=== PATIENT | female | born 1930 | race Caucasian/White ===

== ENCOUNTER 2017-01-23 05:58 | Inpatient (IN) | payer MEDICARE, OTHER ==
[2017-01-23] VITALS (7 sets, daily range): BP systolic 126–149; BP diastolic 57–69; PULSE 70–77; RESP 18; Ht 157.5 cm; Wt 84.5 kg
[~2017-01-23] VITALS: Ht 157.5 cm; Wt 84.5 kg
[~2017-01-23 05:58] MED LIST: ASPI-727; CAND16TA PO; CRES10 PO; DILT120C79 PO; FURO20TA3 PO; ICOS1CAP PO; LANT3I SC; LATA2.5D9; LOSA25TA2 PO; METF1000 PO; METO-335 PO; NOVO3I SC; RIVA15TA PO
[2017-01-23] MEDS ORDERED: ASPIRIN 325 MG TAB PO STA (06:29)
--- NOTE | 2017-01-23 06:41 | ERA ---
ER Documentation Chief Complaint Date/Time DATE: 01/23/17 TIME: 06:35 Chief Complaint shortness of breath x 3 days with high blood pressure HPI This is a very pleasant 86-year-old female presents with her family member for shortness of breath. Symptoms present for approximately 3-4 days. He notes that her blood pressure has been elevated over this timeframe. The patient has been describing generalized weakness, shortness of breath and dyspnea on exertion. He states that was worse tonight when the patient had dyspnea when laying flat. She is also describing a pressure-like discomfort in her epigastrium and chest that is been present for 3 days it is 2 out of 10 currently. She denies any migratory pain. No abdominal bloating or swelling, no nausea vomiting diarrhea or constipation. The patient has a history of atrial fibrillation on Xarelto, diastolic heart failure with preserved EF. ROS All systems reviewed and are negative except as per history of present illness. Medications Home Meds Active Scripts Losartan Potassium* (Cozaar*) 25 Mg Tablet, 25 MG PO BID, #90 TAB 1 Refill Prov:ANDREW GAGNON 04/07/16 Metoprolol Succinate* (Toprol XL*) 25 Mg Tab.sr.24h, 25 MG PO DAILY, #60 TAB 1 Refill Prov:ANDREW GAGNON 04/07/16 Furosemide* (Furosemide*) 20 Mg Tablet, 20 MG PO DAILY, #60 TAB 1 Refill Prov:ANDREW GAGNON 04/07/16 Reported Medications Icosapent Ethyl (VASCEPA) 1 Gm Capsule, 2 GM PO BID, CAP 04/04/16 Candesartan Cilexetil (Atacand) 16 Mg Tablet, 16 MG PO DAILY, TAB PT STOPPED TAKING FOR [address] TO DO TESTS 04/04/16 Metformin Hcl* (Metformin Hcl*) 1,000 Mg Tablet, 1000 MG PO WITH BREAKFAST DINNE , #30 TAB 04/04/16 Insulin Glargine* (Lantus*) 100 Unit/Ml Soln, 0 SC QHS, #1 VIAL SLIDING SCALE 04/04/16 Insulin Aspart* (Novolog Insulin Pen*) 100 Unit/Ml Soln, 0 SC .SLIDING SCALE AC , EA AC MEALS 04/04/16 Diltiazem Hcl* (Diltiazem XT) 120 Mg Capsule.sa, 120 MG PO DAILY, #30 CAP PT STOPPED TAKE ON 03-28-[address] TO HAVE TEST DONE ON THE HEART 04/04/16 Rosuvastatin Calcium* (Crestor*) 10 Mg Tablet, 10 MG PO DAILY 06/09/13 Rivaroxaban* (Xarelto*) 15 Mg Tablet, 15 MG PO DAILY 06/09/13 Latanoprost (Xalatan) 2.5 Ml Drops 03/24/10 Aspirin (Adult Aspirin) 81 Mg Tab.chew 03/24/10 Allergies Allergies: Coded Allergies: morphine (Verified Allergy, Unknown, 04/04/16) PMhx/Soc History of Surgery: Yes Anesthesia Reaction: No Hx Neurological Disorder: No Hx Respiratory Disorders: No Hx Cardiac Disorders: Yes Hx Psychiatric Problems: No Hx Miscellaneous Medical Probl: No Hx Alcohol Use: No Hx Substance Use: No Hx Tobacco Use: No FmHx Family History: coronary disease, diabetes Physical Exam Vitals Vital Signs Date Time Temp Pulse Resp B/P Pulse Ox O2 Delivery O2 Flow Rate FiO2 01/23/17 06:01 97.3 86 20 199/88 97 Physical Exam General: Well developed, well nourished, no acute distress Head: Normocephalic, atraumatic. Eyes: Pupils equally reactive, EOM intact ENT: Moist mucous membranes Neck: Supple, no lymphadenopathy Respiratory: Very scant rales at the bases bilaterally but no respiratory distress Cardiovascular: Irregularly irregular no tachycardia, no murmurs, rubs, or gallops Abdominal: Soft, non-tender, non-distended, no peritoneal signs : Deferred MSK: Scant bilateral edema, no unilateral swelling, 5/5 strength Neurologic: Alert and oriented, moving all extremities, normal speech, no focal weakness, no cerebellar signs Skin: No rash Psych: Normal mood Result Diagram: 01/23/17 0650 01/23/1750 Results 24 hrs Laboratory Tests Test 01/23/17 06:50 White Blood Count 6.310^3/ul Red Blood Count 3.8510^6/ul Hemoglobin 12.2g/dl Hematocrit 36.0% Mean Corpuscular Volume 93.5fl Mean Corpuscular Hemoglobin 31.7pg Mean Corpuscular Hemoglobin Concent 33.9g/dl Red Cell Distribution Width 12.9% Platelet Count 98235^3/UL Mean Platelet Volume 10.3fl Neutrophils % 68.0% Lymphocytes % 18.1% Monocytes % 9.7% Eosinophils % 3.2% Basophils % 0.8% Nucleated Red Blood Cells % 0.0/100WBC Neutrophils # 4.310^3/ul Lymphocytes # 1.110^3/ul Monocytes # 0.610^3/ul Eosinophils # 0.210^3/ul Basophils # 0.110^3/ul Nucleated Red Blood Cells # 0.010^3/ul Sodium Level 138mmol/L Potassium Level 4.1mmol/L Chloride Level 104mmol/L Carbon Dioxide Level 24mmol/L Anion Gap 14 Blood Urea Nitrogen 25mg/dl Creatinine 0.98mg/dl Glucose Level 165mg/dl Calcium Level 9.0mg/dl Total Bilirubin 0.2mg/dl Direct Bilirubin 0.00mg/dl Indirect Bilirubin 0.2mg/dl Aspartate Amino Transf (AST/SGOT) 33IU/L Alanine Aminotransferase (ALT/SGPT) 36IU/L Alkaline Phosphatase 102IU/L Troponin I 0.015ng/ml B-Type Natriuretic Peptide 2310PG/ML Total Protein 7.1g/dl Albumin 3.8g/dl Globulin 3.30g/dl Albumin/Globulin Ratio 1.15 Current Medications Medications (Trade) Dose Ordered Sig/Jacque Route PRN Reason Start Time Stop Time Status Last Admin Dose Admin Aspirin (Aspirin) 325 mg ONCE STAT PO 01/23/17 06:29 01/23/17 06:33 DC 01/23/17 07:04 Furosemide (Lasix) 40 mg ONCE ONCE IV 01/23/17 08:00 01/23/17 08:01 DC Ondansetron HCl (Zofran Inj) 4 mg ER BRIDGE PRN IV NAUSEA AND/OR VOMITING 01/23/17 08:00 01/24/17 07:59 Acetaminophen (Tylenol Tab) 650 mg ER BRIDGE PRN PO MILD PAIN/FEVER 01/23/17 08:00 01/24/17 07:59 Procedures/MDM EKG, MONITORS, & DIAGNOSTIC IMAGING: EKG: I reviewed and interpreted a 12-lead EKG. Rhythm: Atrial fibrillation, rate controlled Ectopy: None Intervals: No abnormalities ST segments: No elevations or depressions T waves: No contiguous inversions Repeat EKG EKG: I reviewed and interpreted a 12-lead EKG. Rhythm: Atrial fibrillation, rate controlled Ectopy: None Intervals: No abnormalities ST segments: No elevations or depressions T waves: No contiguous inversions Chest x-ray: I reviewed and interpreted a 1 view of the chest Mediastinum: No enlargement Cardiac silhouette: Mild cardiomegaly Airspace: Interstitial process consistent with pulmonary edema Bones: No evidence of fracture LAB INTERPRETATION: No leukocytosis, negative troponin, BNP elevation at 2000 MEDICAL DECISION MAKING: The patient presents with epigastric and chest discomfort and dyspnea on exertion or shortness of breath and dyspnea when laying flat. She has a history of atrial fibrillation, she is currently anticoagulated appropriately. She states compliance with her medication regimen. Her symptomatology and presentation is concerning for mild decompensated congestive heart failure likely secondary to diastolic dysfunction with preserved ejection fraction. The patient does not exhibit any signs or symptoms concerning for pulmonary embolism or dissection. Her abdominal exam is benign without signs or symptoms concerning for acute intra-abdominal process such as bowel obstruction, acute appendicitis or cholecystitis. Given the patient's complex medical history including her age with epigastric and chest discomfort I would strongly recommend hospitalization. Aspirin provided. The patient will likely require gentle diuresis, no respiratory distress that warrants BiPAP or nitroglycerin drip. ER COURSE: The patient continues to be resting comfortably. She was given aspirin, Lasix. The patient does not require nitroglycerin, nitroglycerin drip or BiPAP. She has no chest pain currently. She will be admitted for further management of likely decompensated heart failure. I kept the patient and/or family informed of laboratory and diagnostic imaging results throughout the emergency room course. DISPOSITION PLAN: Telemetry admission for management of likely CHF, chest pain rule out. CONSULTATION: Accepting care team and consultations: I discussed the current laboratory data, diagnostic imaging and emergency care provided. Admitting team: Dr. Roberts Admitting team indication: Insurance directed Departure Diagnosis: Primary Impression: Shortness of breath Additional Impressions: Acute exacerbation of CHF (congestive heart failure) Qualified Code: I50.33 - Acute on chronic diastolic congestive heart failure Chest pain Qualified Code: R07.9 - Chest pain, unspecified type Condition: Stable RONY CAMPBELL MD Jan 23, 2017 06:41
[2017-01-23 07:07] LABS: BASOPHIL # 0.1 10^3/ul (0.0-0.1); BASOPHILS % 0.8 % (0.0-2.0); EOSINOPHILS # 0.2 10^3/ul (0.0-0.5); EOSINOPHILS % 3.2 % (0.0-7.0); HEMOGLOBIN 12.2 g/dl (12.0-16.0); LYMPHOCYTES # 1.1 10^3/ul (0.8-2.9); LYMPHOCYTES % 18.1 % (15.0-51.0); MEAN CORPUSCULAR HEMOGLOBIN 31.7 pg (29.0-33.0); MEAN CORPUSCULAR HGB CONC 33.9 g/dl (32.0-37.0); MEAN CORPUSCULAR VOLUME 93.5 fl (82.0-101.0); MEAN PLATELET VOLUME 10.3 fl (7.4-10.4); MONOCYTE # 0.6 10^3/ul (0.3-0.9); MONOCYTES % 9.7 % (0.0-11.0); NEUTROPHIL # 4.3 10^3/ul (1.6-7.5); PLATELET COUNT 229 10^3/UL (140-415); RED BLOOD COUNT 3.85 10^6/ul (4.20-5.40); RED CELL DISTRIBUTION WIDTH 12.9 % (11.5-14.5); WHITE BLOOD COUNT 6.3 10^3/ul (4.8-10.8)
[2017-01-23 07:23] LABS: ALBUMIN 3.8 g/dl (3.3-4.9); ALBUMIN/GLOBULIN RATIO 1.15; BILIRUBIN,INDIRECT 0.2 mg/dl (0-1.1); BILIRUBIN,TOTAL 0.2 mg/dl (0.2-1.3); CREATININE 0.98 mg/dl (0.44-1.00); POTASSIUM 4.1 mmol/L (3.5-5.1); TOTAL PROTEIN 7.1 g/dl (6.1-8.1)
[2017-01-23 07:34] LABS: TROPONIN-I 0.015 ng/ml (0.00-0.12)
[2017-01-23] MEDS ORDERED: ONDANSETRON 4 MG INJ IV PRN ×2 (08:00→09:00)
[2017-01-23] MEDS ORDERED: ACETAMINOPHEN 325 MG TAB PO PRN ×2 (08:00→09:00)
[2017-01-23] MEDS ORDERED: FUROSEMIDE 40 MG INJ IV ONE ×2 (08:00→19:00)
--- NOTE | 2017-01-23 08:02 | RADRPT ---
PROCEDURE: XR Chest. CLINICAL INDICATION: Chest pain. TECHNIQUE: Single frontal view of the chest was obtained. COMPARISON: Chest x-ray 04/06/2018 06:37 a.m. FINDINGS: The soft tissues are normal. There are degenerative osteophytes in the thoracic spine. The left ve ntricle is enlarged. The cardiomediastinal silhouette and hilar structures are normal. The pulmonary vasculature is equilibrated. There are vascular calcifications in the mildly ectatic left-sided ao rta. Mild interstitial pulmonary edema is suspected in the bases of the lungs. The costophrenic ang les are normal. IMPRESSION: 1. Cardiomegaly with equilibration pulmonary vasculature with faint interstitial pulmonary edema. 2. Atherosclerosis with mild ectasia of the thoracic aorta. 3. Spondylosis of the thoracic spine. RPTAT:AAJJ Physician Tulio Date Time Electronically viewed and signed by Physician Tulio on 01/23/2017 08:02 KALE/
[2017-01-23] MEDS ORDERED: MAGNESIUM HYDROXIDE 30ML CUP PO PRN (09:00)
[2017-01-23] MEDS ORDERED: NACL 0.9% 3 ML SYG IV SCH (09:00)
[2017-01-23] MEDS ORDERED: LATANOPROST 0.005% 2.5 ML OPH BOTH EYES SCH (09:00)
[2017-01-23] MEDS ORDERED: NITROGLYCERIN (SL) 0.4 MG TAB SL PRN (09:00)
[2017-01-23] MEDS ORDERED: DOCUSATE SODIUM 100 MG CAP PO PRN (09:00)
--- NOTE | 2017-01-23 09:11 | HP ---
Date/Time of Note Date/Time of Note DATE: 01/23/17 TIME: 09:00 Assessment/Plan VTE Prophylaxis VTE Prophylaxis Intervention: anti-embolic stocking, other Lines/Catheters IV Catheter Type (from Nrs): Saline Lock Assessment/Plan Assessment/Plan 1. Acute on chronic diastolic heart failure - CXR shows cardiomegaly with pulmonary edema - BNP 2310 - Cardiology consult placed and followed by Dr. Nguyen during last admission - ECHO ordered to assess function - Lasix given in ED and started on Lasix 60mg IV BID - Discussed with son importance of daily weights in order to monitor if patient is retaining fluid 2. Hypertensive urgency - BP at time of presentation was 199/88 - may have exacerbated patients CHF. Noted in past HTN may be secondary to renal artery stenosis and currently treated with medical management - Will resume home medications and adjust as needed to maintain SBP <160 3. Diabetes Mellitus - Per son, sugars well controlled in the 100s and taking Metformin daily and ISS as well as Lantus based on accucheck at home - Will hold PO medication and continue on Lantus with ISS - A1c ordered. last was 7.9 per son 4. Afib on Xarelto - Currently rate controlled - Will continue same regime 5. Renal artery stenosis - monitor BP and adjust medications as needed - Once patient stable, will address desire for surgical intervention - During last hospitalization, Dr. Nguyen reenforced importance of low na diet and avoiding NSAIDs which was readdressed with son 6. Diet - Cardiac 7. Gi ppx - PPI 8. DVT - SCD, on xarelto 9. Code status - Full code 10. Disposition - Will admit to telemetry for further workup >40 minutes was spent at time of admission with patient and family at bedside. All imaging and labs were personally reviewed and questions answered HPI/ROS Admit Date/Time Admit Date/Time 01/23/17 Hx of Present Illness 86 yo F with PMH CAD, afib on Xarelto, DM, HFpEF, and renal artery stenosis presented to ED c/o worsening shortness of breath over the past 3 days. Patients son was at bedside and history obtained from son as well as patient. Patient was experiencing shortness of breath on exertion that progressed to orthopnea. She had associated generalized weakness, diminished appetite and has also been experiencing epigastric discomfort over the same time frame. Patient denies any sick contact, change in diet, wheezing, cough, dizziness, headache, fevers, chills, or abdominal issues. Patient has an appointment with PCP on Wednesday but since condition was worsening son decided to bring her to ED. She was followed by Dr. Nguyen during last hospitalization and has been a patient with the practice since 2003. Per son, patients DM is well controlled with sugars ranging in the 100s. She only takes Metformin daily and lantus/ISS based on sugars. Last reported A1c was 7.9. ROS Constitutional: No chills, No diaphoresis, No disoriented, No fatigue, No febrile, No nausea Eyes: no complaints ENT: No congestion, No discharge, No sore throat Respiratory: shortness of breath, No cough, No pain, No sputum, No wheezing Cardiovascular: lightheadedness, orthopenea, No edema, No palpitations Gastrointestinal: pain (epigastric area), No constipation, No diarrhea, No nausea, No vomiting Genitourinary: no complaints Musculoskeletal: no complaints Skin: No erythema, No pruritis, No rash Neurologic: no complaints Endocrine: no complaints Lymphatic: no complaints Psychological: nl mood/affect Immunologic: no complaints PMH/Family/Social Past Medical History Medical History: coronary artery disease, diabetes, GERD, hypertension, renal disease, other (atrial fibrillation) Past Surgical History Past Surgical Hx: angioplasty Family History Significant Family History: heart disease, diabetes Social History Alcohol Use: none Smoking Status: Never smoker Drug Use: none Exam/Review of Systems Vital Signs Vitals Vital Signs Date Time Temp Pulse Resp B/P Pulse Ox O2 Delivery O2 Flow Rate FiO2 01/23/17 06:01 97.3 86 20 199/88 97 Exam Constitutional: alert, oriented, well developed, No distress Psych: nl mood/affect Head: atraumatic, normocephalic Eyes: EOMI, PERRL, nl sclera ENMT: mucosa pink and moist, nl external ears & nose Neck: non-tender, supple, No jvd Respiratory: clear to auscultation, crackles/rales (right lower base), diminished breath sounds, No wheezing Cardiovascular: irregular rhythm, No edema, No murmurs/extra sounds Gastrointestinal: bowel sounds, non-tender, soft, No distended, No firm, No hepatomegaly, No rebound or guarding Musculoskeletal: nl extremities to inspection, No joint tenderness, No muscle weakness Extremities: normal pulses, No clubbing, No cyanosis, No edema Neurological: 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 CLINICAL INDICATION: Chest pain. TECHNIQUE: Single frontal view of the chest was obtained. COMPARISON: Chest x-ray 04/06/2018 06:37 a.m. FINDINGS: The soft tissues are normal. There are degenerative osteophytes in the thoracic spine. The left ventricle is enlarged. The cardiomediastinal silhouette and hilar structures are normal. The pulmonary vasculature is equilibrated. There are vascular calcifications in the mildly ectatic left- sided aorta. Mild interstitial pulmonary edema is suspected in the bases of the lungs. The costophrenic angles are normal. IMPRESSION: 1. Cardiomegaly with equilibration pulmonary vasculature with faint interstitial pulmonary edema. 2. Atherosclerosis with mild ectasia of the thoracic aorta. 3. Spondylosis of the thoracic spine. COREY VILLEDA MD Jan 23, 2017 09:11
[2017-01-23] MEDS ORDERED: GLUCOSE GEL 15 GRAM TUBE PO PRN ×2 (10:30)
[2017-01-23] MEDS ORDERED: GLUCOSE GEL 15 GRAM TUBE BUCCAL PRN (10:30)
[2017-01-23] MEDS ORDERED: GLUCAGON 1 MG INJ IM PRN (10:30)
[2017-01-23] MEDS ORDERED: DEXTROSE 50% 50 ML SYRINGE IV PRN ×2 (10:30)
[2017-01-23 10:55] LABS: CHOL/HDL RATIO 2.6 RATIO
[2017-01-23] MEDS: METOPROLOL (XL) 25 MG TAB PO SCH (10:58)
[2017-01-23] MEDS: ASPIRIN 81 MG TAB PO SCH (10:59)
[2017-01-23] MEDS: RIVAROXABAN 15 MG TABLET PO SCH (12:02)
[2017-01-23] MEDS: INSULIN ASPART [NOVOLOG] 3 ML PEN SC SCH ×3 (12:02→21:18)
[2017-01-23] MEDS: DILTIAZEM (CD) 120 MG CAP PO SCH (12:04)
[2017-01-23] MEDS: FISH OIL 1,000 MG CAP PO SCH ×2 (12:05→21:16)
[2017-01-23] MEDS: LOSARTAN 25 MG TAB PO SCH ×2 (12:05→21:16)
[2017-01-23 13:24] LABS: CREATINE KINASE 90 IU/L (23-200)
[2017-01-23 13:38] LABS: CK-MB 2.62 ng/ml (0.0-2.4); TROPONIN-I < 0.012 ng/ml (0.00-0.12)
[2017-01-23] MEDS: FUROSEMIDE 100 MG INJ IV SCH (18:00)
[2017-01-23 19:38] LABS: CREATINE KINASE 83 IU/L (23-200)
[2017-01-23 19:54] LABS: TROPONIN-I < 0.012 ng/ml (0.00-0.12)
[2017-01-23] MEDS: ATORVASTATIN 40 MG TAB PO SCH (21:16)
[2017-01-23] MEDS: INSULIN GLARGINE [LANtus] 3 ML PEN SC SCH (21:17)
[2017-01-24] VITALS (12 sets, daily range): BP systolic 113–136; BP diastolic 60–68; PULSE 60–70; RESP 18–20
--- NOTE | 2017-01-24 03:17 | CONS ---
DATE OF ADMISSION: 01/23/2017 DATE OF CONSULTATION: 01/23/2017 CARDIOLOGY CONSULTATION REFERRING PHYSICIAN: Dr. Roberts REASON FOR CONSULTATION: Shortness of breath, rule out CHF. CHIEF COMPLAINT: Shortness of breath. HISTORY OF PRESENT ILLNESS: Thank you for this referral. History obtained from the patient, from [facility] with her son, extensive review of the old chart. This is a pleasant 86-year-old female wi th history of coronary artery disease, status post PCI, history of carotid stenosis status post left endarterectomy, hypertension, atrial fibrillation on Xarelto, who came to emergency room with the a mitali complaint. The patient said that apparently over the past week, her diuretics have been decrea sed to once a day only. She has noted increasing shortness of breath. She describes it as shortnes s of breath and cough after she eats only. She says if she does not eat, she is just weak, but she does not complain of any shortness of breath if she does not eat. She has received diuretics today and has been urinating, and breathing has significantly improved now already. Denies any chest pain or pressure to me. PAST MEDICAL HISTORY: History of coronary artery disease, status post PCI, diabetes, carotid stenos is status post left carotid endarterectomy, history of atrial fibrillation, hypertension, renal narciso ry stenosis reportedly, diabetes. PAST SURGICAL HISTORY: Status post left carotid endarterectomy and angioplasty. FAMILY HISTORY: No reported early coronary artery disease. SOCIAL HISTORY: Does not smoke or drink. ALLERGIES: NO ALLERGIES TO MORPHINE. MEDICATIONS: As per medical reconciliation sheet, which include: 1. Xarelto. 2. Atacand. 3. Cardizem. 4. . 5. Losartan. 6. Toprol. 7. Crestor. 8. Aspirin. 9. Lasix 20. 10. Metformin. 11. Insulin. REVIEW OF SYSTEMS: As above mentioned. PHYSICAL EXAMINATION: VITAL SIGNS: Temperature 98.3, heart rate of 71, blood pressure 126/57, respiratory rate of 18, sat urating 95%. Blood pressure on admission was 119/88. HEENT: Normocephalic, atraumatic. Obese female. Pupils are equal. CARDIOVASCULAR: Irregularly irregular with systolic murmur. PULMONARY: Anteriorly with no wheezes, no rhonchi. GASTROINTESTINAL: Soft, nontender, obese. EXTREMITIES: With no significant lower extremity edema. NEUROLOGIC: Awake and alert, responds appropriately. PSYCHIATRIC: Appears to be calm and pleasant. DERMATOLOGIC: No active bleeding sign. LABORATORY: Troponin is 0.015. Sodium 138, potassium 4.1, BUN of 25, creatinine , glucose 165 . Most recent hemoglobin from today is 7.8. WBC is 6.3, hemoglobin 12.2, platelets of 229. BNP wa s elevated at 2310. Chest x-ray was personally reviewed. It shows minimal pulmonary vascular conge stion on my personal review. EKG: Atrial fibrillation. ASSESSMENT AND PLAN: 1. Congestive heart failure, probably [id number] secondary to diastolic heart failure. 2. Dyspnea, probably secondary to above, as well as possibly related to dysphagia and aspiration. 3. Hypertension, hypertensive heart disease. 4. Dyslipidemia. 5. Coronary artery disease. 6. Peripheral vascular disease. 7. Diabetes. 8. Atrial fibrillation. RECOMMENDATIONS: The patient has been started on IV Lasix. I will continue the dose for now, but p robably tomorrow would need to cut down on the dose. I will also add Aldactone to her regimen. Hea rt rate currently under good control. We will continue with current cardiac care. We will disconti nue the aspirin since she is already on Xarelto. Statins will be continued. Diabetic management as per internal medicine. Echo has been ordered, we will be following. Thank you for this referral. We will continue to follow along with you. Dictated By: JINA WEBBER/ANUSHA Conf#: [id number] DID#: [id number] CC: COREY ROBERTS;*EndCC*
[2017-01-24] MEDS: FUROSEMIDE 100 MG INJ IV SCH (06:56)
[2017-01-24] MEDS: PANTOPRAZOLE (EC) 40 MG TAB PO SCH (06:57)
[2017-01-24 08:20] LABS: BASOPHIL # 0.1 10^3/ul (0.0-0.1); BASOPHILS % 1.1 % (0.0-2.0); EOSINOPHILS # 0.2 10^3/ul (0.0-0.5); EOSINOPHILS % 4.5 % (0.0-7.0); HEMATOCRIT 38.8 % (37.0-47.0); HEMOGLOBIN 12.9 g/dl (12.0-16.0); LYMPHOCYTES # 1.4 10^3/ul (0.8-2.9); LYMPHOCYTES % 32.5 % (15.0-51.0); MEAN CORPUSCULAR HEMOGLOBIN 30.8 pg (29.0-33.0); MEAN CORPUSCULAR HGB CONC 33.2 g/dl (32.0-37.0); MEAN CORPUSCULAR VOLUME 92.6 fl (82.0-101.0); MEAN PLATELET VOLUME 10.5 fl (7.4-10.4); MONOCYTE # 0.5 10^3/ul (0.3-0.9); NEUTROPHIL # 2.2 10^3/ul (1.6-7.5); NEUTROPHILS % 49.7 % (39.0-77.0); PLATELET COUNT 251 10^3/UL (140-415); RED BLOOD COUNT 4.19 10^6/ul (4.20-5.40); RED CELL DISTRIBUTION WIDTH 12.9 % (11.5-14.5); WHITE BLOOD COUNT 4.4 10^3/ul (4.8-10.8)
[2017-01-24] MEDS: INSULIN ASPART [NOVOLOG] 3 ML PEN SC SCH ×4 (08:23→20:34)
[2017-01-24] MEDS: FISH OIL 1,000 MG CAP PO SCH ×2 (08:25→20:27)
[2017-01-24] MEDS: LOSARTAN 25 MG TAB PO SCH ×2 (08:26→20:27)
[2017-01-24] MEDS: RIVAROXABAN 15 MG TABLET PO SCH (08:26)
[2017-01-24] MEDS: ASPIRIN 81 MG TAB PO SCH (08:26)
[2017-01-24] MEDS: METOPROLOL (XL) 25 MG TAB PO SCH (08:27)
[2017-01-24] MEDS: DILTIAZEM (CD) 120 MG CAP PO SCH (08:32)
[2017-01-24] MEDS: SPIRONOLACTONE 25 MG TAB PO SCH (08:37)
[2017-01-24 08:47] LABS: ALBUMIN/GLOBULIN RATIO 1.14; BILIRUBIN,INDIRECT 0.6 mg/dl (0-1.1); BILIRUBIN,TOTAL 0.6 mg/dl (0.2-1.3); CALCIUM 9.3 mg/dl (8.4-10.2); CHOL/HDL RATIO 2.7 RATIO; CREATININE 0.97 mg/dl (0.44-1.00); POTASSIUM 4.1 mmol/L (3.5-5.1); TOTAL PROTEIN 7.5 g/dl (6.1-8.1)
[2017-01-24 09:37] LABS: THYROID STIMULATING HORMONE 1.26 MIU/L (0.465-4.680)
--- NOTE | 2017-01-24 17:10 | PN ---
Date/Time of Note Date/Time of Note DATE: 01/24/17 TIME: 17:01 Assessment/Plan VTE Prophylaxis VTE Prophylaxis Intervention: other Lines/Catheters [facility]from [facility] Saline Lock Urinary Cath still in place: No Assessment/Plan Assessment/Plan 1. Acute on chronic diastolic heart failure - CXR shows cardiomegaly with pulmonary edema - BNP 2310 - Cardiology consult placed and appreciated recommendations - ECHO ordered to assess function - On Lasix 60mg IV BID - Discussed with son importance of daily weights in order to monitor if patient is retaining fluid 2. Hypertensive urgency- resolved - Will resume home medications and adjust as needed to maintain SBP <160 3. Diabetes Mellitus - Per son, sugars well controlled in the 100s and taking Metformin daily and ISS as well as Lantus based on accucheck at home - Will hold PO medication and continue on Lantus with ISS - A1c 7.8 4. Afib on Xarelto - Currently rate controlled - Will continue same regime 5. Renal artery stenosis - monitor BP and adjust medications as needed - Once patient stable, will address desire for surgical intervention 6. Disposition - Continue monitoring in Telemetry Subjective 24 Hr Interval Summary Free Text/Dictation Patient feeling better and walking with less dyspnea on exertion. Son at bedside and feels as if mother is improving. No acute overnight events and no new complaints. Exam/Review of Systems Vital Signs Vitals Vital Signs Date Time Temp Pulse Resp B/P Pulse Ox O2 Delivery O2 Flow Rate FiO2 01/24/17 16:12 60 01/24/17 15:57 98.0 18 128/68 98 Intake and Output 01/23/17 01/23/17 01/24/17 15:00 23:00 07:00 Intake Total 300 ml Balance 300 ml Exam Constitutional: alert, oriented, well developed, No distress Head: atraumatic, normocephalic Neck: non-tender, supple, No jvd Respiratory: clear to auscultation, crackles/rales (right lower base), diminished breath sounds, No wheezing Cardiovascular: irregular rhythm, No edema, No murmurs/extra sounds Gastrointestinal: bowel sounds, non-tender, soft, No distended, No firm, No hepatomegaly, No rebound or guarding Musculoskeletal: nl extremities to inspection, No joint tenderness, No muscle weakness Extremities: normal pulses, No clubbing, No cyanosis, No edema Neurological: DINING ROOM MAID II-XII intact, nl mental status, nl speech Results Result Diagram: 01/24/17 0739 01/24/17 0739 Results 24 hrs Laboratory Tests Test 01/23/17 17:22 01/23/17 18:39 01/23/17 21:12 01/24/17 07:39 Bedside Glucose 193 212 Creatine Kinase 83 Creatine Kinase Index 2.3 Creatinine Kinase MB (Mass) 1.90 Troponin I < 0.012 White Blood Count 4.4 #L Red Blood Count 4.19 L Hemoglobin 12.9 Hematocrit 38.8 Mean Corpuscular Volume 92.6 Mean Corpuscular Hemoglobin 30.8 Mean Corpuscular Hemoglobin Concent 33.2 Red Cell Distribution Width 12.9 Platelet Count 251 Mean Platelet Volume 10.5 H Neutrophils % 49.7 Lymphocytes % 32.5 Monocytes % 12.0 H Eosinophils % 4.5 Basophils % 1.1 Nucleated Red Blood Cells % 0.0 Neutrophils # 2.2 Lymphocytes # 1.4 Monocytes # 0.5 Eosinophils # 0.2 Basophils # 0.1 Nucleated Red Blood Cells # 0.0 Sodium Level 138 Potassium Level 4.1 Chloride Level 97 Carbon Dioxide Level 33 H Anion Gap 12 Blood Urea Nitrogen 32 H Creatinine 0.97 Glucose Level 183 Calcium Level 9.3 Total Bilirubin 0.6 Direct Bilirubin 0.00 Indirect Bilirubin 0.6 Aspartate Amino Transf (AST/SGOT) 26 Alanine Aminotransferase (ALT/SGPT) 39 Alkaline Phosphatase 87 B-Type Natriuretic Peptide 1960 H Total Protein 7.5 Albumin 4.0 Globulin 3.50 H Albumin/Globulin Ratio 1.14 Triglycerides Level 81 Cholesterol Level 109 LDL Cholesterol, Calculated 53 HDL Cholesterol 40 Cholesterol/HDL Ratio 2.7 Thyroid Stimulating Hormone (TSH) 1.260 Test 01/24/17 08:21 01/24/17 13:05 Bedside Glucose 170 218 Medications Medications Current Medications Aspirin (Aspirin) 81 mg DAILY PO Last administered on 01/24/17 08:26; Admin Dose 81 MG; Start 01/23/17 at 09:00 Diltiazem HCl (Cardizem Cd) 120 mg DAILY PO Last administered on 01/24/17 08: 32; Admin Dose 120 MG; Start 01/23/17 at 09:00 Losartan Potassium (Cozaar) 25 mg BID PO Last administered on 01/24/17 08:26; Admin Dose 25 MG; Start 01/23/17 at 09:00 Metoprolol Succinate (Toprol Xl) 25 mg DAILY PO Last administered on 01/24/17 08:27; Admin Dose 25 MG; Start 01/23/17 at 09:00 Rivaroxaban (Xarelto) 15 mg DAILY PO Last administered on 01/24/17 08:26; Admin Dose 15 MG; Start 01/23/17 at 09:00 Fish Oil (Fish Oil) 2,000 mg BID PO Last administered on 01/24/17 08:25; Admin Dose 2,000 MG; Start 01/23/17 at 11:00 Atorvastatin Calcium (Lipitor) 40 mg DAILY@21 PO Last administered on 21:16; Admin Dose 40 MG; Start 01/23/17 at 21:00 Insulin Glargine (Lantus) 4 unit QHS SC Last administered on 01/23/17 21:17; Admin Dose 4 UNIT; Start 01/23/17 at 21:00 Ondansetron HCl (Zofran Inj) 4 mg Q6H PRN IV NAUSEA AND/OR VOMITING; Start 01/23/17 at 09:00 Nitroglycerin (Nitroglycerin (Sl Tab) 0.4 Mg) 1 tab Q5M PRN SL CHEST PAIN; Start 01/23/17 at 09:00 Acetaminophen (Tylenol Tab) 650 mg Q6H PRN PO PAIN LEVEL 1-3 OR FEVER; Start 01/23/17 at 09:00 Docusate Sodium (Colace) 100 mg Q12H PRN PO CONSTIPATION; Start 01/23/17 at 09: 00 Magnesium Hydroxide (Milk Of Mag) 30 ml DAILY PRN PO CONSTIPATION; Start at 09:00 Pantoprazole (Protonix Tab) 40 mg DAILY@06 PO Last administered on 01/24/17 06 :57; Admin Dose 40 MG; Start 01/24/17 at 06:00 Miscellaneous Information 1 ea NOTE XX ; Start 01/23/17 at 10:30 Glucose (Glutose) 15 gm Q15M PRN PO DECREASED GLUCOSE; Start 01/23/17 at 10:30 Glucose (Glutose) 22.5 gm Q15M PRN PO DECREASED GLUCOSE; Start 01/23/17 at 10: 30 Dextrose (D50w Syringe) 25 ml Q15M PRN IV DECREASED GLUCOSE; Start 01/23/17 at 10:30 Dextrose (D50w Syringe) 50 ml Q15M PRN IV DECREASED GLUCOSE; Start 01/23/17 at 10:30 Glucagon (Glucagen) 1 mg Q15M PRN IM DECREASED GLUCOSE; Start 01/23/17 at 10:30 Glucose (Glutose) 15 gm Q15M PRN BUCCAL DECREASED GLUCOSE; Start 01/23/17 at 10 :30 Spironolactone (Aldactone) 25 mg DAILY PO Last administered on 01/24/17t 08:37 ; Admin Dose 25 MG; Start 01/24/17 at 09:00 Latanoprost (Xalatan) 1 drop DAILY@21 BOTH EYES ; Start 01/24/17 at 21:00 COREY VILLEDA MD Jan 24, 2017 17:10
[2017-01-24] MEDS: FUROSEMIDE 20 MG INJ IV SCH (17:35)
--- NOTE | 2017-01-24 18:45 | CONS ---
Date/Time of Note Date/Time of Note DATE: 01/24/17 TIME: 18:42 Consult Date/Type/Reason Admit Date/Time Jan 24, 2017 at 10:51 Initial Consult Date Type of Consultation: card Subjective S: Discussed with patient's son. Rhythm was reviewed. Patient with no more chest pain or pressure. Patient shortness of breath has significantly improved as well. She does say that she was able to eat with no shortness of breath now. O: General: obese. no acute distress HEENT: NC/AT. pupils are equal. round. NECK: NO JVD. no stridor. CV: irregularly irregular. . systolic murmur; no gallop or rubs. PULM: no wheezing or rhonchi. GI: SOFT, NT, ND, no rebound or guarding Extremity: trace B/L LE edema. no clubbing. neuro: awake and alert, OX3. Psych: calm and pleasant rectal: deferred : normal Objective Vital Signs Date Time Temp Pulse Resp B/P Pulse Ox O2 Delivery O2 Flow Rate FiO2 01/24/17 16:12 60 01/24/17 15:57 98.0 18 128/68 98 Intake and Output 01/23/17 01/23/17 01/24/17 14:59 22:59 06:59 Intake Total 300 ml Balance 300 ml Results/Medications Result Diagram: 01/24/17 0739 01/24/17 0739 Results 24 hrs Laboratory Tests Test 01/23/17 21:12 01/24/17 07:39 01/24/17 08:21 01/24/17 13:05 Bedside Glucose 212 170 218 White Blood Count 4.4 #L Red Blood Count 4.19 L Hemoglobin 12.9 Hematocrit 38.8 Mean Corpuscular Volume 92.6 Mean Corpuscular Hemoglobin 30.8 Mean Corpuscular Hemoglobin Concent 33.2 Red Cell Distribution Width 12.9 Platelet Count 251 Mean Platelet Volume 10.5 H Neutrophils % 49.7 Lymphocytes % 32.5 Monocytes % 12.0 H Eosinophils % 4.5 Basophils % 1.1 Nucleated Red Blood Cells % 0.0 Neutrophils # 2.2 Lymphocytes # 1.4 Monocytes # 0.5 Eosinophils # 0.2 Basophils # 0.1 Nucleated Red Blood Cells # 0.0 Sodium Level 138 Potassium Level 4.1 Chloride Level 97 Carbon Dioxide Level 33 H Anion Gap 12 Blood Urea Nitrogen 32 H Creatinine 0.97 Glucose Level 183 Calcium Level 9.3 Total Bilirubin 0.6 Direct Bilirubin 0.00 Indirect Bilirubin 0.6 Aspartate Amino Transf (AST/SGOT) 26 Alanine Aminotransferase (ALT/SGPT) 39 Alkaline Phosphatase 87 B-Type Natriuretic Peptide 1960 H Total Protein 7.5 Albumin 4.0 Globulin 3.50 H Albumin/Globulin Ratio 1.14 Triglycerides Level 81 Cholesterol Level 109 LDL Cholesterol, Calculated 53 HDL Cholesterol 40 Cholesterol/HDL Ratio 2.7 Thyroid Stimulating Hormone (TSH) 1.260 Test 01/24/17 17:34 Bedside Glucose 253 H Medications Current Medications Aspirin (Aspirin) 81 mg DAILY PO Last administered on 01/24/17 08:26; Admin Dose 81 MG; Start 01/23/17 at 09:00 Diltiazem HCl (Cardizem Cd) 120 mg DAILY PO Last administered on 01/24/17 08: 32; Admin Dose 120 MG; Start 01/23/17 at 09:00 Losartan Potassium (Cozaar) 25 mg BID PO Last administered on 01/24/17 08:26; Admin Dose 25 MG; Start 01/23/17 at 09:00 Metoprolol Succinate (Toprol Xl) 25 mg DAILY PO Last administered on 01/24/17 08:27; Admin Dose 25 MG; Start 01/23/17 at 09:00 Rivaroxaban (Xarelto) 15 mg DAILY PO Last administered on 01/24/17 08:26; Admin Dose 15 MG; Start 01/23/17 at 09:00 Fish Oil (Fish Oil) 2,000 mg BID PO Last administered on 01/24/17 08:25; Admin Dose 2,000 MG; Start 01/23/17 at 11:00 Atorvastatin Calcium (Lipitor) 40 mg DAILY@21 PO Last administered on 21:16; Admin Dose 40 MG; Start 01/23/17 at 21:00 Insulin Glargine (Lantus) 4 unit QHS SC Last administered on 01/23/17 21:17; Admin Dose 4 UNIT; Start 01/23/17 at 21:00 Ondansetron HCl (Zofran Inj) 4 mg Q6H PRN IV NAUSEA AND/OR VOMITING; Start 01/23/17 at 09:00 Nitroglycerin (Nitroglycerin (Sl Tab) 0.4 Mg) 1 tab Q5M PRN SL CHEST PAIN; Start 01/23/17 at 09:00 Acetaminophen (Tylenol Tab) 650 mg Q6H PRN PO PAIN LEVEL 1-3 OR FEVER; Start 01/23/17 at 09:00 Docusate Sodium (Colace) 100 mg Q12H PRN PO CONSTIPATION; Start 01/23/17 at 09: 00 Magnesium Hydroxide (Milk Of Mag) 30 ml DAILY PRN PO CONSTIPATION; Start at 09:00 Pantoprazole (Protonix Tab) 40 mg DAILY@06 PO Last administered on 01/24/17 06 :57; Admin Dose 40 MG; Start 01/24/17 at 06:00 Miscellaneous Information 1 ea NOTE XX ; Start 01/23/17 at 10:30 Glucose (Glutose) 15 gm Q15M PRN PO DECREASED GLUCOSE; Start 01/23/17 at 10:30 Glucose (Glutose) 22.5 gm Q15M PRN PO DECREASED GLUCOSE; Start 01/23/17 at 10: 30 Dextrose (D50w Syringe) 25 ml Q15M PRN IV DECREASED GLUCOSE; Start 01/23/17 at 10:30 Dextrose (D50w Syringe) 50 ml Q15M PRN IV DECREASED GLUCOSE; Start 01/23/17 at 10:30 Glucagon (Glucagen) 1 mg Q15M PRN IM DECREASED GLUCOSE; Start 01/23/17 at 10:30 Glucose (Glutose) 15 gm Q15M PRN BUCCAL DECREASED GLUCOSE; Start 01/23/17 at 10 :30 Spironolactone (Aldactone) 25 mg DAILY PO Last administered on 01/24/17 08:37 ; Admin Dose 25 MG; Start 01/24/17 at 09:00 Latanoprost (Xalatan) 1 drop DAILY@21 BOTH EYES ; Start 01/24/17 at 21:00 Assessment/Plan Chief Complaint/Hosp Course 1. Congestive heart failure, probably [id number] secondary to diastolic heart failure. 2. Dyspnea, probably secondary to above, as well as possibly related to dysphagia and aspiration. 3. Hypertension, hypertensive heart disease. 4. Dyslipidemia. 5. Coronary artery disease. 6. Peripheral vascular disease. 7. Diabetes. 8. Atrial fibrillation. cont current cardiac care now Dr Lugo will follow up tomorrow. THANK YOU JINA FLOOD MD Problems: JINA FLOOD MD Jan 24, 2017 18:45
[2017-01-24] MEDS: ATORVASTATIN 40 MG TAB PO SCH (20:27)
[2017-01-24] MEDS: LATANOPROST 0.005% 2.5 ML OPH BOTH EYES SCH (20:27)
[2017-01-24] MEDS: INSULIN GLARGINE [LANtus] 3 ML PEN SC SCH (20:34)
[2017-01-25] VITALS (13 sets, daily range): BP systolic 92–133; BP diastolic 54–74; PULSE 60–81; RESP 18–20
[2017-01-25] MEDS: FUROSEMIDE 20 MG INJ IV SCH (05:30)
[2017-01-25] MEDS: PANTOPRAZOLE (EC) 40 MG TAB PO SCH (05:30)
[2017-01-25] MEDS: INSULIN ASPART [NOVOLOG] 3 ML PEN SC SCH ×4 (08:33→20:36)
[2017-01-25] MEDS: FISH OIL 1,000 MG CAP PO SCH ×2 (09:08→20:27)
[2017-01-25] MEDS: RIVAROXABAN 15 MG TABLET PO SCH (09:09)
[2017-01-25] MEDS: LOSARTAN 25 MG TAB PO SCH ×2 (09:09→20:29)
[2017-01-25] MEDS: DILTIAZEM (CD) 120 MG CAP PO SCH (09:09)
[2017-01-25] MEDS: METOPROLOL (XL) 25 MG TAB PO SCH (09:09)
[2017-01-25] MEDS: ASPIRIN 81 MG TAB PO SCH (09:09)
[2017-01-25] MEDS: SPIRONOLACTONE 25 MG TAB PO SCH (09:09)
--- NOTE | 2017-01-25 19:53 | PN ---
Date/Time of Note Date/Time of Note DATE: 01/25/17 TIME: 19:50 Assessment/Plan VTE Prophylaxis VTE Prophylaxis Intervention: SCD's Lines/Catheters IV [facility] (from [facility] Saline Lock Urinary Cath still in place: No Assessment/Plan Chief Complaint/Hosp Course 1. Acute on chronic diastolic heart failure - CXR shows cardiomegaly with pulmonary edema - BNP 2310 - Cardiology consult placed and appreciated recommendations - ECHO ordered to assess function - On Lasix 60mg IV BID transitioned to orals - Discussed with son importance of daily weights in order to monitor if patient is retaining fluid 2. Hypertensive urgency- resolved - Will resume home medications and adjust as needed to maintain SBP <160 3. Diabetes Mellitus - Per son, sugars well controlled in the 100s and taking Metformin daily and ISS as well as Lantus based on accucheck at home - Will hold PO medication and continue on Lantus with ISS - A1c 7.8 4. Afib on Xarelto - Currently rate controlled - Will continue same regime 5. Renal artery stenosis - monitor BP and adjust medications as needed 6. Disposition - Continue monitoring in Telemetry Problems: Subjective 24 Hr Interval Summary Free Text/Dictation no acute complaints Exam/Review of Systems Vital Signs Vitals Vital Signs Date Time Temp Pulse Resp B/P Pulse Ox O2 Delivery O2 Flow Rate FiO2 01/25/17 19:45 97.7 77 20 114/56 94 Intake and Output 01/24/17 01/24/17 01/25/17 15:00 23:00 07:00 Intake Total 300 ml 1500 ml 400 ml Balance 300 ml 1500 ml 400 ml Exam Constitutional: alert, oriented, well developed, No distress Head: atraumatic, normocephalic Neck: non-tender, supple, Respiratory: clear to auscultation, crackles/rales (right lower base), diminished breath sounds, No wheezing Cardiovascular: irregular rhythm, No edema, No murmurs/extra sounds Gastrointestinal: bowel sounds, non-tender, soft, No distended, No firm, No hepatomegaly, No rebound or guarding Musculoskeletal: nl extremities to inspection, No joint tenderness, No muscle weakness Extremities: normal pulses, No clubbing, No cyanosis, No edema Neurological: PERMIT COORDINATOR II-XII intact, nl mental status, nl speech Results Result Diagram: 10/8/17 0739 10/8/17 0739 Results 24 hrs Laboratory Tests Test 01/24/17 20:25 01/25/17 08:28 01/25/17 12:38 01/25/17 17:39 Bedside Glucose 202 184 255 H 235 H Medications Medications Current Medications Aspirin (Aspirin) 81 mg DAILY PO Last administered on 01/25/17 09:09; Admin Dose 81 MG; Start 01/23/17 at 09:00 Diltiazem HCl (Cardizem Cd) 120 mg DAILY PO Last administered on 01/25/17 09: 09; Admin Dose 120 MG; Start 01/23/17 at 09:00 Losartan Potassium (Cozaar) 25 mg BID PO Last administered on 01/25/17 09:09; Admin Dose 25 MG; Start 01/23/17 at 09:00 Metoprolol Succinate (Toprol Xl) 25 mg DAILY PO Last administered on 01/25/17 09:09; Admin Dose 25 MG; Start 01/23/17 at 09:00 Rivaroxaban (Xarelto) 15 mg DAILY PO Last administered on 01/25/17 09:09; Admin Dose 15 MG; Start 01/23/17 at 09:00 Fish Oil (Fish Oil) 2,000 mg BID PO Last administered on 01/25/17 09:08; Admin Dose 2,000 MG; Start 01/23/17 at 11:00 Atorvastatin Calcium (Lipitor) 40 mg DAILY@21 PO Last administered on 20:27; Admin Dose 40 MG; Start 01/23/17 at 21:00 Insulin Glargine (Lantus) 4 unit QHS SC Last administered on 01/24/17 20:34; Admin Dose 4 UNIT; Start 01/23/17 at 21:00 Ondansetron HCl (Zofran Inj) 4 mg Q6H PRN IV NAUSEA AND/OR VOMITING; Start 01/23/17 at 09:00 Nitroglycerin (Nitroglycerin (Sl Tab) 0.4 Mg) 1 tab Q5M PRN SL CHEST PAIN; Start 01/23/17 at 09:00 Acetaminophen (Tylenol Tab) 650 mg Q6H PRN PO PAIN LEVEL 1-3 OR FEVER; Start 01/23/17 at 09:00 Docusate Sodium (Colace) 100 mg Q12H PRN PO CONSTIPATION; Start 01/23/17 at 09: 00 Magnesium Hydroxide (Milk Of Mag) 30 ml DAILY PRN PO CONSTIPATION; Start at 09:00 Pantoprazole (Protonix Tab) 40 mg DAILY@06 PO Last administered on 01/25/17 05 :30; Admin Dose 40 MG; Start 01/24/17 at 06:00 Miscellaneous Information 1 ea NOTE XX ; Start 01/23/17 at 10:30 Glucose (Glutose) 15 gm Q15M PRN PO DECREASED GLUCOSE; Start 01/23/17 at 10:30 Glucose (Glutose) 22.5 gm Q15M PRN PO DECREASED GLUCOSE; Start 01/23/17 at 10: 30 Dextrose (D50w Syringe) 25 ml Q15M PRN IV DECREASED GLUCOSE; Start 01/23/17 at 10:30 Dextrose (D50w Syringe) 50 ml Q15M PRN IV DECREASED GLUCOSE; Start 01/23/17 at 10:30 Glucagon (Glucagen) 1 mg Q15M PRN IM DECREASED GLUCOSE; Start 01/23/17 at 10:30 Glucose (Glutose) 15 gm Q15M PRN BUCCAL DECREASED GLUCOSE; Start 01/23/17 at 10 :30 Spironolactone (Aldactone) 25 mg DAILY PO Last administered on 01/25/17 09:09 ; Admin Dose 25 MG; Start 01/24/17 at 09:00 Latanoprost (Xalatan) 1 drop DAILY@21 BOTH EYES Last administered on 01/24/17 20:27; Admin Dose 1 DROP; Start 01/24/17 at 21:00 Furosemide (Lasix) 20 mg DAILY PO ; Start 01/26/17 at 09:00 ASHLEY KRAUS Jan 25, 2017 19:53
[2017-01-25] MEDS: ATORVASTATIN 40 MG TAB PO SCH (20:27)
[2017-01-25] MEDS: LATANOPROST 0.005% 2.5 ML OPH BOTH EYES SCH (20:30)
[2017-01-25] MEDS: INSULIN GLARGINE [LANtus] 3 ML PEN SC SCH (20:32)
--- NOTE | 2017-01-25 21:37 | PN ---
Date/Time of Note Date/Time of Note DATE: 01/25/17 TIME: 21:36 Assessment/Plan VTE Prophylaxis VTE Prophylaxis Intervention: SCD's Lines/Catheters IV Catheter Type (from Nrs): Saline Lock Urinary Cath still in place: No Assessment/Plan Assessment/Plan 1. Congestive heart failure, probably [id number] secondary to diastolic heart failure. 2. Dyspnea, probably secondary to above, as well as possibly related to dysphagia and aspiration. 3. Hypertension, hypertensive heart disease. 4. Dyslipidemia. 5. Coronary artery disease. 6. Peripheral vascular disease. 7. Diabetes. 8. Atrial fibrillation. -contineu lasix - on AC due to afib -contineu cv meds -sw son Subjective 24 Hr Interval Summary Free Text/Dictation The patient with no complaints Exam/Review of Systems Vital Signs Vitals Vital Signs Date Time Temp Pulse Resp B/P Pulse Ox O2 Delivery O2 Flow Rate FiO2 01/25/17 20:18 65 01/25/17 19:45 97.7 20 114/56 94 Intake and Output 01/24/17 01/24/17 01/25/17 15:00 23:00 07:00 Intake Total 300 ml 1500 ml 400 ml Balance 300 ml 1500 ml 400 ml Results Result Diagram: 01/24/17 0739 01/24/17 0739 Results 24 hrs Laboratory Tests Test 01/25/17 08:28 01/25/17 12:38 01/25/17 17:39 01/25/17 20:06 Bedside Glucose 184 255 H 235 H 271 H Medications Medications Current Medications Aspirin (Aspirin) 81 mg DAILY PO Last administered on 01/25/17 09:09; Admin Dose 81 MG; Start 01/23/17 at 09:00 Diltiazem HCl (Cardizem Cd) 120 mg DAILY PO Last administered on 01/25/17 09: 09; Admin Dose 120 MG; Start 01/23/17 at 09:00 Losartan Potassium (Cozaar) 25 mg BID PO Last administered on 01/25/17 20:29; Admin Dose 25 MG; Start 01/23/17 at 09:00 Metoprolol Succinate (Toprol Xl) 25 mg DAILY PO Last administered on 01/25/17 09:09; Admin Dose 25 MG; Start 01/23/17 at 09:00 Rivaroxaban (Xarelto) 15 mg DAILY PO Last administered on 01/25/17 09:09; Admin Dose 15 MG; Start 01/23/17 at 09:00 Fish Oil (Fish Oil) 2,000 mg BID PO Last administered on 01/25/17 20:27; Admin Dose 2,000 MG; Start 01/23/17 at 11:00 Atorvastatin Calcium (Lipitor) 40 mg DAILY@21 PO Last administered on 20:27; Admin Dose 40 MG; Start 01/23/17 at 21:00 Insulin Glargine (Lantus) 4 unit QHS SC Last administered on 01/25/17 20:32; Admin Dose 4 UNIT; Start 01/23/17 at 21:00 Ondansetron HCl (Zofran Inj) 4 mg Q6H PRN IV NAUSEA AND/OR VOMITING; Start 01/23/17 at 09:00 Nitroglycerin (Nitroglycerin (Sl Tab) 0.4 Mg) 1 tab Q5M PRN SL CHEST PAIN; Start 01/23/17 at 09:00 Acetaminophen (Tylenol Tab) 650 mg Q6H PRN PO PAIN LEVEL 1-3 OR FEVER; Start 01/23/17 at 09:00 Docusate Sodium (Colace) 100 mg Q12H PRN PO CONSTIPATION; Start 01/23/17 at 09: 00 Magnesium Hydroxide (Milk Of Mag) 30 ml DAILY PRN PO CONSTIPATION; Start at 09:00 Pantoprazole (Protonix Tab) 40 mg DAILY@06 PO Last administered on 01/25/17 05 :30; Admin Dose 40 MG; Start 01/24/17 at 06:00 Miscellaneous Information 1 ea NOTE XX ; Start 01/23/17 at 10:30 Glucose (Glutose) 15 gm Q15M PRN PO DECREASED GLUCOSE; Start 01/23/17 at 10:30 Glucose (Glutose) 22.5 gm Q15M PRN PO DECREASED GLUCOSE; Start 01/23/17 at 10: 30 Dextrose (D50w Syringe) 25 ml Q15M PRN IV DECREASED GLUCOSE; Start 01/23/17 at 10:30 Dextrose (D50w Syringe) 50 ml Q15M PRN IV DECREASED GLUCOSE; Start 01/23/17 at 10:30 Glucagon (Glucagen) 1 mg Q15M PRN IM DECREASED GLUCOSE; Start 01/23/17 at 10:30 Glucose (Glutose) 15 gm Q15M PRN BUCCAL DECREASED GLUCOSE; Start 01/23/17 at 10 :30 Spironolactone (Aldactone) 25 mg DAILY PO Last administered on 01/25/17 09:09 ; Admin Dose 25 MG; Start 01/24/17 at 09:00 Latanoprost (Xalatan) 1 drop DAILY@21 BOTH EYES Last administered on 01/25/17 20:30; Admin Dose 1 DROP; Start 01/24/17 at 21:00 Furosemide (Lasix) 20 mg DAILY PO ; Start 01/26/17 at 09:00 SHARON LOOMIS MD Jan 25, 2017 21:37
[2017-01-26] VITALS (13 sets, daily range): BP systolic 90–132; BP diastolic 47–63; PULSE 60–73; RESP 18–20
[2017-01-26] MEDS: PANTOPRAZOLE (EC) 40 MG TAB PO SCH (05:33)
--- NOTE | 2017-01-26 08:21 | RADRPT ---
Echocardiogram Report Patient Name: JUANY DAVIS Gender: Female Date: 1930 Study Date: 25-Jan-2017 Ward[facility] Special[facility] Location: [id number] Ref. Physician: COREY VILLEDA Quality: Good Procedures: Transthoracic echocardiogram with complete 2D, M-Mode, and doppler examination. Indications: Chest Pain. Congestive Heart Failure. 2D/M Mode Doppler Measurement Value Normal Ranges Measurement Value Normal Ranges LVIDd MM 5.4 cm DEEPTI Vmax 2.0 cm2 LVIDs MM 4.3 cm DEEPTI VTI 2.0 cm2 FS MM 20.0 % AV Peak [place] 1.4 m/sec LVPWd MM 1.0 cm AV Peak PG 7.5 mmHg IVSd MM 1.1 cm LVOT Peak [place] 0.8 m/sec AoR Diam MM 3.1 cm LVOT Peak PG 2.6 mmHg ACS MM 1.9 cm TR Peak [place] 2.5 m/sec LA/Ao MM 1.3 TR Peak PG 25.3 mmHg EDV MM 142.9 cm3 ESV MM 84.9 cm3 LA Dimen MM 4.1 cm LVIDd 2D 4.5 3.5 - 5.6 cm LVIDs 2D 2.6 2.1 - 4.1 cm LVPWd 2D 1.1 0.6 - 1.1 cm IVSd 2D 1.1 0.6 - 1.1 cm EDV 2D 91.3 cm3 ESV 2D 18.4 cm3 LA Dimen 2D 4.1 2.3 - 4.0 cm LVOT Diam 2.1 cm Findings Left Ventricle: Normal left ventricular systolic function. Normal left ventricular cavity size. Mild concentric left ventricular hypertrophy. Ejection fraction is visually estimated at 55 %. Abnormal Diastolic Function. Right Ventricle: Normal right ventricular size. Normal right ventricular systolic function. Left Atrium: The left atrium is normal in size. Right Atrium: The right atrium is normal in size. Mitral Valve: Normal appearance and function of the mitral valve with trace physiologic regurgitation. Aortic Valve: Aortic sclerosis without stenosis. Tricuspid Valve: There is trace to mild tricuspid regurgitation. Pulmonic Valve: Normal pulmonic valve appearance. Pericardium: Normal pericardium with no significant pericardial effusion. Aorta: Normal aortic root. IVC: Normal size and normal respiratory collapse consistent with normal right atrial pressure. Pulmonary Artery: Not well visualized. Conclusions 1.Normal left ventricular systolic function. Normal left ventricular cavity size. Mild concentric left ventricular hypertrophy. Ejection fraction is visually estimated at 55 %. Abnormal Diastolic Function. 2.Normal appearance and function of the mitral valve with trace physiologic regurgitation. 3.Aortic sclerosis without stenosis. 4.There is trace to mild tricuspid regurgitation. 5.Normal pulmonic valve appearance. 6.Normal pericardium with no significant pericardial effusion. Electronically Signed By: Jenifer Lugo 26-Jan-2017 08:20:42 -0700 Patient Name: JUANY DAVIS Study Date: 25-Jan-[id number]
[2017-01-26] MEDS: INSULIN ASPART [NOVOLOG] 3 ML PEN SC SCH ×4 (08:32→20:33)
[2017-01-26] MEDS: SPIRONOLACTONE 25 MG TAB PO SCH (09:14)
[2017-01-26] MEDS: ASPIRIN 81 MG TAB PO SCH (09:14)
[2017-01-26] MEDS: LOSARTAN 25 MG TAB PO SCH (09:14)
[2017-01-26] MEDS: FISH OIL 1,000 MG CAP PO SCH ×2 (09:14→20:17)
[2017-01-26] MEDS: DILTIAZEM (CD) 120 MG CAP PO SCH (09:14)
[2017-01-26] MEDS: METOPROLOL (XL) 25 MG TAB PO SCH (09:15)
[2017-01-26] MEDS: FUROSEMIDE 20 MG TAB PO SCH (09:15)
[2017-01-26] MEDS: RIVAROXABAN 15 MG TABLET PO SCH (09:15)
[2017-01-26 09:35] LABS: BASOPHIL # 0.1 10^3/ul (0.0-0.1); BASOPHILS % 1.1 % (0.0-2.0); EOSINOPHILS # 0.2 10^3/ul (0.0-0.5); EOSINOPHILS % 3.7 % (0.0-7.0); HEMATOCRIT 42.3 % (37.0-47.0); HEMOGLOBIN 13.8 g/dl (12.0-16.0); LYMPHOCYTES % 36.8 % (15.0-51.0); MEAN CORPUSCULAR HEMOGLOBIN 30.5 pg (29.0-33.0); MEAN CORPUSCULAR HGB CONC 32.6 g/dl (32.0-37.0); MEAN CORPUSCULAR VOLUME 93.4 fl (82.0-101.0); MONOCYTE # 0.6 10^3/ul (0.3-0.9); MONOCYTES % 11.8 % (0.0-11.0); NEUTROPHIL # 2.5 10^3/ul (1.6-7.5); NEUTROPHILS % 46.4 % (39.0-77.0); PLATELET COUNT 243 10^3/UL (140-415); RED BLOOD COUNT 4.53 10^6/ul (4.20-5.40); RED CELL DISTRIBUTION WIDTH 12.7 % (11.5-14.5); WHITE BLOOD COUNT 5.4 10^3/ul (4.8-10.8)
[2017-01-26 09:58] LABS: CREATININE 1.5 mg/dl (0.44-1.00); MAGNESIUM 1.6 mg/dl (1.7-2.5); PHOSPHORUS 5.1 mg/dl (2.5-4.9); POTASSIUM 4.3 mmol/L (3.5-5.1)
--- NOTE | 2017-01-26 14:53 | PN ---
Date/Time of Note Date/Time of Note DATE: 01/26/17 TIME: 14:46 Assessment/Plan VTE Prophylaxis VTE Prophylaxis Intervention: other Lines/Catheters IV Catheter Type (from Nrs): Saline Lock Urinary Cath still in place: No Assessment/Plan Assessment/Plan 1. Congestive heart failure, probably [id number] secondary to diastolic heart failure, improving 2. Hypertension, hypertensive heart disease, controlled 3. Atrial fibrillation., controlled rate, on xarelto 4. Dyslipidemia, on statin 5. Coronary artery disease. 6. Peripheral vascular disease, stable 7. Diabetes, increase3 lantus, may need premeal insulin 8. Renal artery stenosis Subjective 24 Hr Interval Summary Free Text/Dictation less shortness of breathy. no chest pain Exam/Review of Systems Vital Signs Vitals Vital Signs Date Time Temp Pulse Resp B/P Pulse Ox O2 Delivery O2 Flow Rate FiO2 01/26/17 12:05 70 01/26/17 11:54 98.6 18 103/63 96 Intake and Output 01/25/17 01/25/17 01/26/17 15:00 23:00 07:00 Intake Total 405 ml 200 ml Balance 405 ml 200 ml Exam Constitutional: alert, obese, oriented, well developed Head: atraumatic, normocephalic Eyes: EOMI, nl conjunctiva, nl lids ENMT: nl external ears & nose, nl lips & teeth, nl nasal mucosa & septum Neck: non-tender, supple Respiratory: clear to auscultation, normal air movement, No congested cough, No crackles/rales, No diminished breath sounds, No intercostal retraction, No labored breathing, No other, No respirations, No tactile fremitus, No wheezing Cardiovascular: nl pulses, regular rate and rhythm, No S3, No S4, No bruits, No diastolic murmur, No edema, No gallop, No irregular rhythm, No jugular venous distention (JVD), No murmurs/extra sounds, No other, No rub, No systolic murmur Gastrointestinal: nl liver, spleen, non-tender, soft, No ascites, No bowel sounds, No distended, No firm, No hepatomegaly, No mass , No other, No rebound or guarding, No splenomegaly, No surgical scars, No tender Musculoskeletal: nl extremities to inspection Extremities: normal pulses, No calf tenderness, No clubbing, No cyanosis, No edema, No other, No palpable cord, No pitting pedal edema, No tenderness Neurological: BLOCK SEALER II-XII intact, nl mental status, nl speech, nl strength Skin: nl turgor Lymph: nl lymph nodes Results Result Diagram: 01/26/17 0843 01/26/17 0843 Results 24 hrs Laboratory Tests Test 01/25/17 17:39 01/25/17 20:06 01/26/17 02:08 01/26/17 08:25 Bedside Glucose 235 H 271 H 200 183 Test 01/26/17 08:43 01/26/17 12:18 White Blood Count 5.4 # Red Blood Count 4.53 Hemoglobin 13.8 Hematocrit 42.3 Mean Corpuscular Volume 93.4 Mean Corpuscular Hemoglobin 30.5 Mean Corpuscular Hemoglobin Concent 32.6 Red Cell Distribution Width 12.7 Platelet Count 243 Mean Platelet Volume 11.0 H Neutrophils % 46.4 Lymphocytes % 36.8 Monocytes % 11.8 H Eosinophils % 3.7 Basophils % 1.1 Nucleated Red Blood Cells % 0.0 Neutrophils # 2.5 Lymphocytes # 2.0 Monocytes # 0.6 Eosinophils # 0.2 Basophils # 0.1 Nucleated Red Blood Cells # 0.0 Sodium Level 131 L Potassium Level 4.3 Chloride Level 95 L Carbon Dioxide Level 28 Anion Gap 12 Blood Urea Nitrogen 60 H Creatinine 1.50 H Glucose Level 203 Calcium Level 9.0 Phosphorus Level 5.1 H Magnesium Level 1.6 L Bedside Glucose 299 H Medications Medications Current Medications Aspirin (Aspirin) 81 mg DAILY PO Last administered on 01/26/17 09:14; Admin Dose 81 MG; Start 01/23/17 at 09:00 Diltiazem HCl (Cardizem Cd) 120 mg DAILY PO Last administered on 01/26/17 09: 14; Admin Dose 120 MG; Start 01/23/17 at 09:00 Losartan Potassium (Cozaar) 25 mg BID PO Last administered on 01/26/17 09:14 ; Admin Dose 25 MG; Start 01/23/17 at 09:00 Metoprolol Succinate (Toprol Xl) 25 mg DAILY PO Last administered on 09:15; Admin Dose 25 MG; Start 01/23/17 at 09:00 Rivaroxaban (Xarelto) 15 mg DAILY PO Last administered on 01/26/17 09:15; Admin Dose 15 MG; Start 01/23/17 at 09:00 Fish Oil (Fish Oil) 2,000 mg BID PO Last administered on 01/26/17 09:14; Admin Dose 2,000 MG; Start 01/23/17 at 11:00 Atorvastatin Calcium (Lipitor) 40 mg DAILY@21 PO Last administered on 20:27; Admin Dose 40 MG; Start 01/23/17 at 21:00 Insulin Glargine (Lantus) 4 unit QHS SC Last administered on 01/25/17 20:32; Admin Dose 4 UNIT; Start 01/23/17 at 21:00 Ondansetron HCl (Zofran Inj) 4 mg Q6H PRN IV NAUSEA AND/OR VOMITING; Start 01/23/17 at 09:00 Nitroglycerin (Nitroglycerin (Sl Tab) 0.4 Mg) 1 tab Q5M PRN SL CHEST PAIN; Start 01/23/17 at 09:00 Acetaminophen (Tylenol Tab) 650 mg Q6H PRN PO PAIN LEVEL 1-3 OR FEVER; Start 01/23/17 at 09:00 Docusate Sodium (Colace) 100 mg Q12H PRN PO CONSTIPATION; Start 01/23/17 at 09: 00 Magnesium Hydroxide (Milk Of Mag) 30 ml DAILY PRN PO CONSTIPATION; Start at 09:00 Pantoprazole (Protonix Tab) 40 mg DAILY@06 PO Last administered on 01/26/17 05:33; Admin Dose 40 MG; Start 01/24/17 at 06:00 Miscellaneous Information 1 ea NOTE XX ; Start 01/23/17 at 10:30 Glucose (Glutose) 15 gm Q15M PRN PO DECREASED GLUCOSE; Start 01/23/17 at 10:30 Glucose (Glutose) 22.5 gm Q15M PRN PO DECREASED GLUCOSE; Start 01/23/17 at 10: 30 Dextrose (D50w Syringe) 25 ml Q15M PRN IV DECREASED GLUCOSE; Start 01/23/17 at 10:30 Dextrose (D50w Syringe) 50 ml Q15M PRN IV DECREASED GLUCOSE; Start 01/23/17 at 10:30 Glucagon (Glucagen) 1 mg Q15M PRN IM DECREASED GLUCOSE; Start 01/23/17 at 10:30 Glucose (Glutose) 15 gm Q15M PRN BUCCAL DECREASED GLUCOSE; Start 01/23/17 at 10 :30 Spironolactone (Aldactone) 25 mg DAILY PO Last administered on 01/26/17 09:14 ; Admin Dose 25 MG; Start 01/24/17 at 09:00 Latanoprost (Xalatan) 1 drop DAILY@21 BOTH EYES Last administered on 01/25/17 20:30; Admin Dose 1 DROP; Start 01/24/17 at 21:00 Furosemide (Lasix) 20 mg DAILY PO Last administered on 01/26/17 09:15; Admin Dose 20 MG; Start 01/26/17 at 09:00 RORO VILLAGOMEZ MD Jan 26, 2017 14:53
--- NOTE | 2017-01-26 17:52 | PN ---
Date/Time of Note Date/Time of Note DATE: 01/26/17 TIME: 17:45 Assessment/Plan VTE Prophylaxis VTE Prophylaxis Intervention: SCD's Lines/Catheters IV Catheter Type (from Nrs): Saline Lock Urinary Cath still in place: No Assessment/Plan Assessment/Plan 1. Congestive heart failure, probably [id number] secondary to diastolic heart failure. 2. Dyspnea, probably secondary to above, as well as possibly related to dysphagia and aspiration. 3. Hypertension, hypertensive heart disease. 4. Dyslipidemia. 5. Coronary artery disease. 6. Peripheral vascular disease. 7. Diabetes. 8. Atrial fibrillation. -contineu lasix - on AC due to afib -contineu cv meds -sw son Subjective 24 Hr Interval Summary Free Text/Dictation The patient with no compalints Exam/Review of Systems Vital Signs Vitals Vital Signs Date Time Temp Pulse Resp B/P Pulse Ox O2 Delivery O2 Flow Rate FiO2 01/26/17 16:12 61 01/26/17 15:27 98.0 18 106/63 99 Intake and Output 01/25/17 01/25/17 01/26/17 15:00 23:00 07:00 Intake Total 405 ml 200 ml Balance 405 ml 200 ml Results Result Diagram: 01/26/17 0843 01/26/17 0843 Results 24 hrs Laboratory Tests Test 01/25/17 20:06 01/26/17 02:08 01/26/17 08:25 01/26/17 08:43 Bedside Glucose 271 H 200 183 White Blood Count 5.4 # Red Blood Count 4.53 Hemoglobin 13.8 Hematocrit 42.3 Mean Corpuscular Volume 93.4 Mean Corpuscular Hemoglobin 30.5 Mean Corpuscular Hemoglobin Concent 32.6 Red Cell Distribution Width 12.7 Platelet Count 243 Mean Platelet Volume 11.0 H Neutrophils % 46.4 Lymphocytes % 36.8 Monocytes % 11.8 H Eosinophils % 3.7 Basophils % 1.1 Nucleated Red Blood Cells % 0.0 Neutrophils # 2.5 Lymphocytes # 2.0 Monocytes # 0.6 Eosinophils # 0.2 Basophils # 0.1 Nucleated Red Blood Cells # 0.0 Sodium Level 131 L Potassium Level 4.3 Chloride Level 95 L Carbon Dioxide Level 28 Anion Gap 12 Blood Urea Nitrogen 60 H Creatinine 1.50 H Glucose Level 203 Calcium Level 9.0 Phosphorus Level 5.1 H Magnesium Level 1.6 L Test 01/26/17 12:18 01/26/17 17:27 Bedside Glucose 299 H 300 H Medications Medications Current Medications Aspirin (Aspirin) 81 mg DAILY PO Last administered on 01/26/17 09:14; Admin Dose 81 MG; Start 01/23/17 at 09:00 Diltiazem HCl (Cardizem Cd) 120 mg DAILY PO Last administered on 01/26/17 09: 14; Admin Dose 120 MG; Start 01/23/17 at 09:00 Metoprolol Succinate (Toprol Xl) 25 mg DAILY PO Last administered on 09:15; Admin Dose 25 MG; Start 01/23/17 at 09:00 Rivaroxaban (Xarelto) 15 mg DAILY PO Last administered on 01/26/17 09:15; Admin Dose 15 MG; Start 01/23/17 at 09:00 Fish Oil (Fish Oil) 2,000 mg BID PO Last administered on 01/26/17 09:14; Admin Dose 2,000 MG; Start 01/23/17 at 11:00 Atorvastatin Calcium (Lipitor) 40 mg DAILY@21 PO Last administered on 20:27; Admin Dose 40 MG; Start 01/23/17 at 21:00 Ondansetron HCl (Zofran Inj) 4 mg Q6H PRN IV NAUSEA AND/OR VOMITING; Start 01/23/17 at 09:00 Nitroglycerin (Nitroglycerin (Sl Tab) 0.4 Mg) 1 tab Q5M PRN SL CHEST PAIN; Start 01/23/17 at 09:00 Acetaminophen (Tylenol Tab) 650 mg Q6H PRN PO PAIN LEVEL 1-3 OR FEVER; Start 01/23/17 at 09:00 Docusate Sodium (Colace) 100 mg Q12H PRN PO CONSTIPATION; Start 01/23/17 at 09: 00 Magnesium Hydroxide (Milk Of Mag) 30 ml DAILY PRN PO CONSTIPATION; Start at 09:00 Pantoprazole (Protonix Tab) 40 mg DAILY@06 PO Last administered on 01/26/17 05:33; Admin Dose 40 MG; Start 01/24/17 at 06:00 Miscellaneous Information 1 ea NOTE XX ; Start 01/23/17 at 10:30 Glucose (Glutose) 15 gm Q15M PRN PO DECREASED GLUCOSE; Start 01/23/17 at 10:30 Glucose (Glutose) 22.5 gm Q15M PRN PO DECREASED GLUCOSE; Start 01/23/17 at 10: 30 Dextrose (D50w Syringe) 25 ml Q15M PRN IV DECREASED GLUCOSE; Start 01/23/17 at 10:30 Dextrose (D50w Syringe) 50 ml Q15M PRN IV DECREASED GLUCOSE; Start 01/23/17 at 10:30 Glucagon (Glucagen) 1 mg Q15M PRN IM DECREASED GLUCOSE; Start 01/23/17 at 10:30 Glucose (Glutose) 15 gm Q15M PRN BUCCAL DECREASED GLUCOSE; Start 01/23/17 at 10 :30 Spironolactone (Aldactone) 25 mg DAILY PO Last administered on 01/26/17 09:14 ; Admin Dose 25 MG; Start 01/24/17 at 09:00 Latanoprost (Xalatan) 1 drop DAILY@21 BOTH EYES Last administered on 01/25/17 20:30; Admin Dose 1 DROP; Start 01/24/17 at 21:00 Furosemide (Lasix) 20 mg DAILY PO Last administered on 01/26/17 09:15; Admin Dose 20 MG; Start 01/26/17 at 09:00 Insulin Glargine (Lantus) 8 unit QHS SC ; Start 01/26/17 at 21:00 Losartan Potassium (Cozaar) 25 mg DAILY PO ; Start 01/27/17 at 09:00 SHARON LOOMIS MD Jan 26, 2017 17:52
[2017-01-26] MEDS: ATORVASTATIN 40 MG TAB PO SCH (20:17)
[2017-01-26] MEDS: LATANOPROST 0.005% 2.5 ML OPH BOTH EYES SCH (20:19)
[2017-01-26] MEDS ORDERED: INSULIN GLARGINE [LANtus] 3 ML PEN SC SCH (21:00)
[2017-01-27] VITALS (9 sets, daily range): BP systolic 103–117; BP diastolic 50–62; PULSE 53–70; RESP 17–18
[2017-01-27] MEDS: PANTOPRAZOLE (EC) 40 MG TAB PO SCH (05:22)
[2017-01-27] MEDS: RIVAROXABAN 15 MG TABLET PO SCH (08:40)
[2017-01-27] MEDS: SPIRONOLACTONE 25 MG TAB PO SCH (08:40)
[2017-01-27] MEDS: FUROSEMIDE 20 MG TAB PO SCH (08:40)
[2017-01-27] MEDS: FISH OIL 1,000 MG CAP PO SCH (08:40)
[2017-01-27] MEDS: ASPIRIN 81 MG TAB PO SCH (08:40)
[2017-01-27] MEDS: DILTIAZEM (CD) 120 MG CAP PO SCH (08:42)
[2017-01-27] MEDS: METOPROLOL (XL) 25 MG TAB PO SCH (08:42)
--- NOTE | 2017-01-27 08:46 | PN ---
Date/Time of Note Date/Time of Note DATE: 01/27/17 TIME: 08:46 Assessment/Plan VTE Prophylaxis VTE Prophylaxis Intervention: SCD's Lines/Catheters IV [facility] Type [facility]from [facility] Saline Lock Urinary Cath still in place: No Assessment/Plan Assessment/Plan 1. Congestive heart failure, probably [id number] secondary to diastolic heart failure. 2. Dyspnea, probably secondary to above, as well as possibly related to dysphagia and aspiration. 3. Hypertension, hypertensive heart disease. 4. Dyslipidemia. 5. Coronary artery disease. 6. Peripheral vascular disease. 7. Diabetes. 8. Atrial fibrillation. -contineu lasix - on AC due to afib -contineu cv meds -sw son Subjective 24 Hr Interval Summary Free Text/Dictation the patient wih no ahnge Exam/Review of Systems Vital Signs Vitals Vital Signs Date Time Temp Pulse Resp B/P Pulse Ox O2 Delivery O2 Flow Rate FiO2 01/27/17 08:30 64 01/27/17 07:49 98.0 18 103/61 98 Intake and Output 01/26/17 01/26/17 01/27/17 14:59 22:59 06:59 Intake Total 550 ml 200 ml Balance 550 ml 200 ml Results Result Diagram: 01/26/17 0843 01/26/17 0843 Results 24 hrs Laboratory Tests Test 01/26/17 12:18 01/26/17 17:27 01/26/17 20:22 01/27/17 02:08 Bedside Glucose 299 H 300 H 259 H 190 Test 01/27/17 08:36 Bedside Glucose 181 Medications Medications Current Medications Aspirin (Aspirin) 81 mg DAILY PO Last administered on 01/26/17 09:14; Admin Dose 81 MG; Start 01/23/17 at 09:00 Diltiazem HCl (Cardizem Cd) 120 mg DAILY PO Last administered on 01/26/17 09: 14; Admin Dose 120 MG; Start 01/23/17 at 09:00 Metoprolol Succinate (Toprol Xl) 25 mg DAILY PO Last administered on 09:15; Admin Dose 25 MG; Start 01/23/17 at 09:00 Rivaroxaban (Xarelto) 15 mg DAILY PO Last administered on 01/26/17 09:15; Admin Dose 15 MG; Start 01/23/17 at 09:00 Fish Oil (Fish Oil) 2,000 mg BID PO Last administered on 01/26/17 20:17; Admin Dose 2,000 MG; Start 01/23/17 at 11:00 Atorvastatin Calcium (Lipitor) 40 mg DAILY@21 PO Last administered on 20:17; Admin Dose 40 MG; Start 01/23/17 at 21:00 Ondansetron HCl (Zofran Inj) 4 mg Q6H PRN IV NAUSEA AND/OR VOMITING; Start 01/23/17 at 09:00 Nitroglycerin (Nitroglycerin (Sl Tab) 0.4 Mg) 1 tab Q5M PRN SL CHEST PAIN; Start 01/23/17 at 09:00 Acetaminophen (Tylenol Tab) 650 mg Q6H PRN PO PAIN LEVEL 1-3 OR FEVER; Start 01/23/17 at 09:00 Docusate Sodium (Colace) 100 mg Q12H PRN PO CONSTIPATION; Start 01/23/17 at 09: 00 Magnesium Hydroxide (Milk Of Mag) 30 ml DAILY PRN PO CONSTIPATION; Start at 09:00 Pantoprazole (Protonix Tab) 40 mg DAILY@06 PO Last administered on 01/27/17 05:22; Admin Dose 40 MG; Start 01/24/17 at 06:00 Miscellaneous Information 1 ea NOTE XX ; Start 01/23/17 at 10:30 Glucose (Glutose) 15 gm Q15M PRN PO DECREASED GLUCOSE; Start 01/23/17 at 10:30 Glucose (Glutose) 22.5 gm Q15M PRN PO DECREASED GLUCOSE; Start 01/23/17 at 10: 30 Dextrose (D50w Syringe) 25 ml Q15M PRN IV DECREASED GLUCOSE; Start 01/23/17 at 10:30 Dextrose (D50w Syringe) 50 ml Q15M PRN IV DECREASED GLUCOSE; Start 01/23/17 at 10:30 Glucagon (Glucagen) 1 mg Q15M PRN IM DECREASED GLUCOSE; Start 01/23/17 at 10:30 Glucose (Glutose) 15 gm Q15M PRN BUCCAL DECREASED GLUCOSE; Start 01/23/17 at 10 :30 Spironolactone (Aldactone) 25 mg DAILY PO Last administered on 01/26/17 09:14 ; Admin Dose 25 MG; Start 10/8/17 at 09:00 Latanoprost (Xalatan) 1 drop DAILY@21 BOTH EYES Last administered on 20:19; Admin Dose 1 DROP; Start 01/24/17 at 21:00 Furosemide (Lasix) 20 mg DAILY PO Last administered on 01/26/17 09:15; Admin Dose 20 MG; Start 01/26/17 at 09:00 Insulin Glargine (Lantus) 8 unit QHS SC Last administered on 01/26/17 20:27; Admin Dose 8 UNIT; Start 01/26/17 at 21:00 Losartan Potassium (Cozaar) 25 mg DAILY PO ; Start 01/27/17 at 09:00 SHARON LOOMIS MD Jan 27, 2017 08:46
[2017-01-27] MEDS: INSULIN ASPART [NOVOLOG] 3 ML PEN SC SCH ×3 (09:00→17:49)
[2017-01-27] MEDS ORDERED: LOSARTAN 25 MG TAB PO SCH (09:00)
[2017-01-27 09:55] LABS: CALCIUM 8.9 mg/dl (8.4-10.2); CREATININE 1.32 mg/dl (0.44-1.00); POTASSIUM 4.2 mmol/L (3.5-5.1)
--- NOTE | 2017-01-27 14:04 | DS ---
Date/Time of Note Date/Time of Note DATE: 01/27/17 TIME: 13:59 Discharge Summary Admission/Discharge Info Admit Date/Time Jan 24, 2017 at 10:51 Discharge Date/Time Discharge Diagnosis 1. Congestive heart failure, probably [id number]-[id number] secondary to diastolic heart failure, improved, follow up with cardiology 2. Hypertension, hypertensive heart disease, controlled 3. Atrial fibrillation., controlled rate, on xarelto 4. Dyslipidemia, on statin 5. Coronary artery diseases/p PCI/stent. stable 6. Peripheral vascular disease, stable 7. Diabetes, on insulins 8. Renal artery stenosis Patient Condition: Stable Consults Jenifer Lugo MD-cardiology Procedures Echocardiogram Report Patient Name: JUANY DAVIS Gender: Female Date: 1930 Study Date: 25-Jan-2017 Case Finisher: RADHA GIRON Location: [id number] Ref. Physician: COREY VILLEDA Quality: Good Procedures: Transthoracic echocardiogram with complete 2D, M-Mode, and doppler examination. Indications: Chest Pain. Congestive Heart Failure. 2D/M Mode Doppler Measurement Value Normal Ranges Measurement Value Normal Ranges LVIDd MM 5.4 cm DEEPTI Vmax 2.0 cm2 LVIDs MM 4.3 cm DEEPTI VTI 2.0 cm2 FS MM 20.0 % AV Peak Osito 1.4 m/sec LVPWd MM 1.0 cm AV Peak PG 7.5 mmHg IVSd MM 1.1 cm LVOT Peak Osito 0.8 m/sec AoR Diam MM 3.1 cm LVOT Peak PG 2.6 mmHg ACS MM 1.9 cm TR Peak Osito 2.5 m/sec LA/Ao MM 1.3 TR Peak PG 25.3 mmHg EDV MM 142.9 cm3 ESV MM 84.9 cm3 LA Dimen MM 4.1 cm LVIDd 2D 4.5 3.5 - 5.6 cm LVIDs 2D 2.6 2.1 - 4.1 cm LVPWd 2D 1.1 0.6 - 1.1 cm IVSd 2D 1.1 0.6 - 1.1 cm EDV 2D 91.3 cm3 ESV 2D 18.4 cm3 LA Dimen 2D 4.1 2.3 - 4.0 cm LVOT Diam 2.1 cm Findings Left Ventricle: Normal left ventricular systolic function. Normal left ventricular cavity size. Mild concentric left ventricular hypertrophy. Ejection fraction is visually estimated at 55 %. Abnormal Diastolic Function. Right Ventricle: Normal right ventricular size. Normal right ventricular systolic function. Left Atrium: The left atrium is normal in size. Right Atrium: The right atrium is normal in size. Mitral Valve: Normal appearance and function of the mitral valve with trace physiologic regurgitation. Aortic Valve: Aortic sclerosis without stenosis. Tricuspid Valve: There is trace to mild tricuspid regurgitation. Pulmonic Valve: Normal pulmonic valve appearance. Pericardium: Normal pericardium with no significant pericardial effusion. Aorta: Normal aortic root. IVC: Normal size and normal respiratory collapse consistent with normal right atrial pressure. Pulmonary Artery: Not well visualized. Conclusions 1. Normal left ventricular systolic function. Normal left ventricular cavity size. Mild concentric left ventricular hypertrophy. Ejection fraction is visually estimated at 55 %. Abnormal Diastolic Function. 2. Normal appearance and function of the mitral valve with trace physiologic regurgitation. 3. Aortic sclerosis without stenosis. 4. There is trace to mild tricuspid regurgitation. 5. Normal pulmonic valve appearance. 6. Normal pericardium with no significant pericardial effusion. Electronically Signed By: Jenifer Lugo 26-Jan-2017 08:20:42 -0700 Patient Name: JUANY DAVIS Study Date: 25-Jan-[id number] Hx of Present Illness 86 yo F with PMH CAD, afib on Xarelto, DM, HFpEF, and renal artery stenosis presented to ED c/o worsening shortness of breath over the past 3 days. Patients son was at bedside and history obtained from son as well as patient. Patient was experiencing shortness of breath on exertion that progressed to orthopnea. She had associated generalized weakness, diminished appetite and has also been experiencing epigastric discomfort over the same time frame. Patient denies any sick contact, change in diet, wheezing, cough, dizziness, headache, fevers, chills, or abdominal issues. Patient has an appointment with PCP on Wednesday but since condition was worsening son decided to bring her to ED. She was followed by Dr. Nguyen during last hospitalization and has been a patient with the practice since 2003. Per son, patients DM is well controlled with sugars ranging in the 100s. She only takes Metformin daily and lantus/ISS based on sugars. Last reported A1c was 7.9. Hospital Course CXR with pulmonary congestion. Patient is treated with diuretics that significantly improved her symptoms. Patient walks in hallway without shortness of breath or chest pain. I had a long talk with the patient and her son today, given updates and treatment plans. Patient will follow up with Cardiology outpatient. Last BUN/Cr are 62/1.32. Home Meds Active Scripts Losartan Potassium* (Cozaar*) 25 Mg Tablet, 25 MG PO BID, #90 TAB 1 Refill Prov:CHELSIANDREW 04/07/16 Metoprolol Succinate* (Toprol XL*) 25 Mg Tab.sr.24h, 25 MG PO DAILY, #60 TAB 1 Refill Prov:ANDREW GAGNON 04/07/16 Furosemide* (Furosemide*) 20 Mg Tablet, 20 MG PO DAILY, #60 TAB 1 Refill Prov:ANDREW GAGNON 04/07/16 Reported Medications Icosapent Ethyl (VASCEPA) 1 Gm Capsule, 2 GM PO BID, CAP 04/04/16 Metformin Hcl* (Metformin Hcl*) 1,000 Mg Tablet, 1000 MG PO WITH BREAKFAST DINNE , #30 TAB 04/04/16 Insulin Glargine* (Lantus*) 100 Unit/Ml Soln, 0 SC QHS, #1 VIAL SLIDING SCALE 04/04/16 Insulin Aspart* (Novolog Insulin Pen*) 100 Unit/Ml Soln, 0 SC .SLIDING SCALE AC , EA AC MEALS 04/04/16 Diltiazem Hcl* (Diltiazem XT) 120 Mg Capsule.sa, 120 MG PO DAILY, #30 CAP PT STOPPED TAKE ON 03-28-[address] TO HAVE TEST DONE ON THE HEART 04/04/16 Rosuvastatin Calcium* (Crestor*) 10 Mg Tablet, 10 MG PO DAILY 06/09/13 Rivaroxaban* (Xarelto*) 15 Mg Tablet, 15 MG PO DAILY 06/09/13 Latanoprost (Xalatan) 2.5 Ml Drops 03/24/10 Aspirin (Adult Aspirin) 81 Mg Tab.chew 03/24/10 Discontinued Reported Medications Candesartan Cilexetil (Atacand) 16 Mg Tablet, 16 MG PO DAILY, TAB PT STOPPED TAKING FOR [address] TO DO TESTS 04/04/16 Follow-up Plan PCP and cardiology in one week Primary Care Provider Not On Staff Doctor Pending Labs Laboratory Tests Test 01/26/17 17:27 01/26/17 20:22 01/27/17 02:08 01/27/17 08:11 Bedside Glucose 300mg/dL (70-220) 259mg/dL (70-220) 190mg/dL (70-220) Sodium Level 132mmol/L (135-144) Potassium Level 4.2mmol/L (3.5-5.1) Chloride Level 98mmol/L (97-110) Carbon Dioxide Level 28mmol/L (21-31) Anion Gap 10 (8-16) Blood Urea Nitrogen 62mg/dl (7-20) Creatinine 1.32mg/dl (0.44-1.00) Glucose Level 190mg/dl (70-220) Calcium Level 8.9mg/dl (8.4-10.2) Test 01/27/17 08:36 01/27/17 12:19 Bedside Glucose 181mg/dL (70-220) 248mg/dL (70-220) RORO VILLAGOMEZ MD Jan 27, 2017 14:04
== END 2017-01-27 18:31 | disposition home or self-care (01) | DRG 293 ==
LOC: E/R 05:58 → MS4 07:48 → INTOOBSV 07:48 → MS4 10:16 → UNDOADMIN 10:16 → OBSVTOIN 01-24 10:51
PROVIDERS: ADMIT Internal Medicine; ATTEND Internal Medicine
DX: I50.33 Acute on chronic diastolic (congestive) heart failure (principal); E11.8 Type 2 diabetes mellitus with unspecified complications; I48.91 Unspecified atrial fibrillation; I11.0 Hypertensive heart disease with heart failure; I70.1 Atherosclerosis of renal artery; E78.5 Hyperlipidemia, unspecified; I25.10 Atherosclerotic heart disease of native coronary artery without angina pectoris; I73.9 Peripheral vascular disease, unspecified; Z79.4 Long term (current) use of insulin; Z79.01 Long term (current) use of anticoagulants
CPT/HCPCS: 36415; 71010; 80048; 80053; 80061; 82550; 82553; 82962; 83036; 83735; 83880; 84100; 84443; 84484; 85025; 92610; 93005; 93306; 96374; 97116; 97161; 97166; 97530; G0378; J1940; J1815

== ENCOUNTER → 2018-01-11 | Outpatient (CLI) | END | disposition home or self-care (01) ==